=== PATIENT | female | born 1965 | race Caucasian/White ===

== ENCOUNTER 2018-12-03 10:40 | Emergency (ER) | payer BC, OTHER ==
[~2018-12-03] VITALS: Ht 162.6 cm; Wt 74.8 kg
--- NOTE | 2018-12-03 10:50 | NUR ---
ADMIT PT IN RM 3A, 53 YO FEMALE WITH C/O BACK PAIN. SEEN AND EXAMINED BY
[2018-12-03] MEDS ORDERED: GABA300C PO (10:52)
[2018-12-03] MEDS ORDERED: ATOR40TA PO (10:52)
[2018-12-03] MEDS ORDERED: DULO60CA45 PO (10:52)
[2018-12-03] MEDS ORDERED: OXYCODONE/APAP 5-325 MG TABLET PO ONE (11:00)
[2018-12-03] MEDS ORDERED: OXYCODONE/APAP 5-325 MG TABLET ONE (11:06)
[2018-12-03 11:36] VITALS: BP 125/55
== END 2018-12-03 11:10 | disposition home or self-care (01) ==
LOC: ER 10:40
DX: G89.29 Other chronic pain (principal); M54.5 Low back pain; E78.5 Hyperlipidemia, unspecified; Z88.2 Allergy status to sulfonamides; Z88.8 Allergy status to other drugs, medicaments and biological substances; Z79.899 Other long term (current) drug therapy
CPT/HCPCS: A4663

== ENCOUNTER 2018-12-14 09:48 | Emergency (ER) | payer OTHER ==
[~2018-12-14] VITALS: Ht 162.6 cm; Wt 74.8 kg
[~2018-12-14 09:48] MED LIST: ATOR40TA PO; DULO60CA45 PO; GABA300C PO
--- NOTE | 2018-12-14 10:23 | NUR ---
PT SEEN AND EXAMINED BY DR GOMEZ.
[2018-12-14] MEDS ORDERED: OXYCODONE/APAP 5-325 MG TABLET PO ONE (10:30)
[2018-12-14] MEDS ORDERED: CARISOPRODOL 350 MG TABLET PO ONE (10:30)
[2018-12-14] MEDS ORDERED: OXYCODONE/APAP 5-325 MG TABLET ONE (10:37)
[2018-12-14] MEDS ORDERED: CARISOPRODOL 350 MG TABLET ONE (10:37)
[2018-12-14 10:40] VITALS: BP 147/75
--- NOTE | 2018-12-14 10:40 | NUR ---
Patient discharged to home in stable conditon. Written and verbal after care instructions given. Patient verbalizes understanding of instructions. Pt walked out of ER w/ steady gait.
== END 2018-12-14 10:41 | disposition home or self-care (01) ==
LOC: ER 09:48
DX: G89.29 Other chronic pain (principal); M54.42 Lumbago with sciatica, left side; E78.5 Hyperlipidemia, unspecified; Z88.2 Allergy status to sulfonamides; Z88.8 Allergy status to other drugs, medicaments and biological substances; Z79.899 Other long term (current) drug therapy
CPT/HCPCS: A4663